=== PATIENT | female | born 1970 | race Caucasian/White ===

== ENCOUNTER → 2018-03-30 16:10 | Outpatient (CLI) | payer BC, SELFPAY ==
--- NOTE | 2018-03-30 16:13 | MR_ITS ---
MR head/brain wo con Ordering Physician: Lauri Paredes MD Patient Age: 47 years: Female HISTORY: ITS.REASON: NONINTRACTABLE EPISODIC HEADACHE HISTORY of breast cancer with recent double mastectomy in November and reconstruction 4 weeks ago. TECHNIQUE: MRI the brain without contrast. Multiplanar FLAIR, T1, T2 weighted images along with axial diffusion/ADC imaging performed on 1.5 T. Siemens, MRI. COMPARISON :None FINDINGS No mass lesion evident. No mass effect. Diffusion images reveal no recent or acute infarct or ischemia. The ventricles are normal size & basal cisterns appear normal. White gonzalez matter interface appears normal. The sensitive axial and coronal FLAIR lesions image set reveal no deep white matter lesions. Posterior fossa is unremarkable. . IACs appear symmetric CP angle clear. Mastoid air cells well-developed and unremarkable. . Normal anatomy with normal cranial cervical junction. Normal sella.. No extra-axial collections. The scalp and skull regions appear satisfactory. Normal flow void dural venous sinuses. Visualized paranasal sinuses well-developed and clear.. Engorgement nasal turbinates bilaterally noted with deviation nasal septum to the right. It orbits unremarkable on this survey study.. --- IMPRESSION: 1. Negative MRI the brain. No intracranial abnormalities evident. No mass lesion. No deep white matter lesions. Normal anatomy. 2. Also in regards to history headaches- the paranasal sinuses are clear.. Moderate engorgement nasal turbinates bilaterally with mild deviation nasal septum.
== END ==
PROVIDERS: PCP Internal Medicine Adolescent Medicine; Visit Provider Internal Medicine Adolescent Medicine
DX: R51 Headache (principal)
CPT/HCPCS: 70551

== ENCOUNTER → 2022-01-11 06:59 | Outpatient (CLI) | payer BC, SELFPAY ==
--- NOTE | 2022-01-11 | CA_ITS ---
APPROVED REPORT Exam: Exercise Treadmill Technologist: Savannah Dawkins, Ht: 5 ft 2 in Wt: 188 lbs BSA: 1.86 m2 HR: 61 bpm BP: 161/84 mmHg Stress Test Details Test: Chalino HR Resting HR: 59 bpm Max Heart Rate (APMHR): 171 bpm Max HR Achieved: 169 bpm Target HR (85% APMHR): 145 bpm % of APMHR: 99 Recovery HR: 91 bpm BP Resting BP: 170/83 mmHg Max BP: 193/87 mmHg Recovery BP: 171.0/82.0 mmHg ECG Resting ECG: SR, nonspecific ST-T changes. Clinical Exercise duration: 06:33 min Highest Stage Achieved: II Exercise capacity: 7.0 METs Stress ECG Conclusion Max HR: 169 Symptoms: SOA, w/exertion, no chest pain. Arrhythmias/Ectopy: frequent PVCs, ventricular couplet, ventricular bigeminy. Less than 1.[address] segment depression noted from the baseline EKG, the EKG portion of the exercise is nondiagnostic. Electronically signed by : Noe Cesar MD 01/11/2022 11:55:27
--- NOTE | 2022-01-11 07:24 | NM_ITS ---
APPROVED REPORT Exam: Nuclear Stress Test Indication: HYPERLIPIDEMIA, FM HX., C.P., SOB, PALPITATIONS Patient Location: Outpatient Stress Tech: Savannah Dupont AR Tech:Natalie Patino, ARRT RT (R)(N)(M) Ht: 5 ft 2 in Wt: 188 lbs Bra Size: 36D HR: 61 bpm BP: 161/84 mmHg BSA: 1.86 m2 TID: 1.20 BMI: 34.3 History: HYPERLIPIDEMIA, FM HX., C.P., SOB, PALPITATIONS Procedure: Patient exercised on Chalino protocol 6:30 minutes and sec, resting heart rate 161 bpm, resting blood pressure 161/84 mmHg, with exercise maximum heart rate achived was 166 bpm which is 99 % of the maximum predicted heart rate and blood pressure was 193/87 mmHg. Test was stopped due to SOA. Patient denied any complaint of chest pain. Patient has Adequate exercise capacity, achieved 7.0 METs of workload on treadmill, the blood pressure response to exercise was Adequate. Electrocardiogram Resting electrocardiogram shows sinus rhythm nonspecific ST-T changes, with exercise there is additional millimeter downsloping ST segment depression from the baseline EKG, the EKG portion of the exercise Myoview is nondiagnostic due to baseline abnormal EKG. Cardiac Stress and Resting SPECT Images: Cardiac Stress and Resting SPECT images were obtained using technetium 99m Myoview 31.5 mCi stress and 10.45 mCi at rest. Gated SPECT analysis of segmental wall motion and calculation of the ejection fraction also done. Cardiac stress and rest SPECT images show mild fixed defect in the anterior wall with normal contractility in the gated SPECT is likely secondary to soft tissue attenuation from breast, no reversible ischemia seen, computer derived ejection fraction is 63% with no regional wall motion abnormality, right ventricle is normal size and contractility. Conclusion: 1. The EKG portion of the exercise Myoview is nondiagnostic due to baseline abnormal EKG, patient has adequate exercise capacity achieved 7 METS of workload on treadmill, the blood pressure response to exercise was adequate. There was no exercise-induced chest discomfort. 2. No scintigraphic evidence of reversible ischemia seen, computer derived ejection fraction 63% with no regional wall motion abnormality, right ventricle is normal size and contractility. 3. Normal exercise Myoview study. Electronically signed by : Noe Cesar MD 01/11/2022 11:59:03
--- NOTE | 2022-01-11 08:14 | CA_ITS ---
APPROVED REPORT EXAM: Comprehensive 2D, Doppler, and color-flow Echocardiogram Seat Trimmer: Genevieve Morrissey RVT Ht: 5 ft 2 in Wt: 170lbs BSA: 1.78 BP: 116/72 mmHg Indications: SOA,MURMUR,CP,PRIOR MASECTOMY WITH IMPLANTS TDS-BREAST IMPLANTS 2D Dimensions LVOT 1.83 cm (M/F) 1.5-2.5 LA Volume 22.90 mL LA Volume Index 12.86 mL/m2 (M/F) 16-34 M-Mode Dimensions RVDd 2.61 cm (0.9-2.6) LA Diam 2.80 cm (1.9-4.0) LVDd 3.56 cm (3.5-5.7) Ao Diam 2.31 cm (2.0-3.7) LVDs 2.08 cm (3.5-5.7) IVSd 0.91 cm (0.6-1.1) PWd 0.57 cm (0.6-1.1) EF (Teich) 73.40% FS 41.60% EDV (Teich) 53.00 mL TAPSE 1.61 (<1.7) ESV (Teich) 14.10 mL LV Diastology E Decel Time 150.00 (160-240 msec) E/A Ratio 0.9 MED E' 9.90 (< 7 cm/sec) E'/MED E' Ratio 9.02 (>14) LAT E' 8.40 (<10 cm/sec) E/LAT E' Ratio 10.63 (>14) Aortic Valve AO Peak GR. 5.40 mmHg Mitral Valve MV E Max Artem. 89.00 (40-130 cm/s) MV A Velocity 103.00 (40-130 cm/s) E/A Ratio 0.87 MV Decel. Time 150.00 (160-240 ms) MV PHT 44.00 ms Pulmonary Valve PV Peak Velocity 69.00 (50-150 cm/s) Tricuspid Valve TR P. Velocity 234.00 cm/s RAP Estimate 10.00 mmHg RVSP 31.90 mmHg Left Ventricle Left atrium normal size, left ventricle is normal size preserved left ventricular systolic function, estimated ejection fraction 55% with no regional wall motion abnormality, diastolic parameters are within normal range. Right Ventricle Right atrium and right ventricle are normal size and contractility. Aortic Valve Aortic valve is grossly normal there is no aortic stenosis or aortic insufficiency. Mitral Valve Mitral valve is grossly normal, there is trace mitral regurgitation. Tricuspid Valve Tricuspid grossly normal, there is trace tricuspid regurgitation, tricuspid regurgitation jet velocity is inadequate for calculation of the right ventricular systolic pressure. Pulmonic Valve Pulmonic valve is poorly visualized. Great Vessels Aortic root is normal size. Inferior vena cava is mildly dilated without significant inspiratory collapse. Pericardium No significant pericardial effusion noted. Conclusion 1. Normal left ventricular size preserved left ventricular systolic function, estimated ejection fraction 55% with no regional wall motion abnormality, diastolic parameters are within normal range. 2. Trace mitral and tricuspid regurgitation. 3. No significant pericardial effusion. 4. Inferior vena cava is mildly dilated without significant inspiratory collapse. Electronically signed by : Noe Cesar MD 01/11/2022 13:49:32
--- NOTE | 2022-01-11 08:15 | US_ITS ---
FINAL REPORT CLINICAL HISTORY: previous smoker, HLD, bilateral claudication. FINDINGS: COMPLETE ANKLE/BRACHIAL INDICES BILATERAL Plate ankle brachial indices was obtained. The right MAHESH is 1.0. The left MAHESH is 1.1. IMPRESSION: Normal ABIs bilaterally. Reviewed, Interpreted and Dictated by Shivam Acosta III, MD Transcribed by Arcelia López Authenticated and [facility]
== END ==
PROVIDERS: PCP Internal Medicine Adolescent Medicine; Visit Provider Internal Medicine Adolescent Medicine
DX: R06.09 Other forms of dyspnea (principal); I20.8 Other forms of angina pectoris; R01.1 Cardiac murmur, unspecified; I70.213 Atherosclerosis of native arteries of extremities with intermittent claudication, bilateral legs
CPT/HCPCS: 78452; 93017; 93306; 93923; A9502

== ENCOUNTER → 2022-01-31 14:27 | Outpatient (CLI) | payer BC, SELFPAY ==
[2022-01-31 14:33] LABS: Microscopic, Urine URINE MICROSCOPIC (MICROSCOPIC)
[2022-01-31 15:31] LABS: Appearance,Urine CLEAR (Clear); Bilirubin,Urine Negative (Negative); Blood, Urine TRACE-I (Negative); Color,Urine YELLOW (Yellow); Glucose,Urine (UA) Negative (Negative); Ketones,Urine Negative (Negative); Leukocyte Esterase,Urine Negative (Negative); Nitrate,Urine Negative (Negative); Protein,Urine Negative (Negative); Specific Gravity, Urine >= 1.030 (1.005-1.030); Urobilinogen,Urine 0.2 EU/dl (0.2)
[2022-01-31 15:41] LABS: Basophils # 0.1 K/mm3 (0-0.2); Basophils % 1.1 % (0.1-2.0); Eosinophils # 0.3 K/mm3 (0.0-0.4); Eosinophils % 3.7 % (0.1-12.0); Hematocrit 39.4 % (37.0-47.0); Lymphocytes # 3.2 K/mm3 (0.7-4.5); Lymphocytes % 40.6 % (10-50); Mean Corpuscular HGB Conc 33.1 g/dL (31.8-35.4); Mean Corpuscular Hemoglobin 31.6 pg (27.0-31.2); Mean Corpuscular Volume 95.4 fl (81-99); Mean Platelet Volume 8.6 fl (7.4-10.4); Monocytes # 0.6 K/mm3 (0.1-1.0); Monocytes % 8.1 % (1.7-9.3); Neutrophils # 3.7 K/mm3 (1.8-7.8); Neutrophils % 46.4 % (37.0-80.0); Platelet Count 299 K/mm3 (142-424); Red Blood Count 4.13 M/mm3 (4.20-5.40); Red Cell Distribution Width 12.7 % (11.5-17.5); White Blood Count 7.9 K/mm3 (4.8-10.8)
[2022-01-31 15:56] LABS: Alanine Aminotransferase 16 U/L (12-78); Albumin Level 4.2 g/dl (3.5-5.0); Albumin/Globulin Ratio 1.4 (1.1-1.8); Alkaline Phosphatase 80 U/L (38-126); Amylase 53 U/L (30-110); Anion Gap 10.3 mEq/L (5-15); Aspartate Amino Transferase 24 U/L (14-36); Blood Urea Nitrogen 13 mg/dl (7-17); Calcium 9.1 mg/dl (8.4-10.2); Carbon Dioxide 26 mmol/L (22.0-30.0); Chloride 105 mmol/L (98-107); Estimated Glomerular Filt Rate 76 ml/min (>60); GFR (African American) 92 ML/MIN (>60); Globulin 2.9 g/dL (1.3-3.2); Glucose 74 mg/dl (74-100); Lipase 144 U/L (23-300); Potassium 4.3 mmoL/L (3.5-5.1); Sodium 137 mmol/L (136-145); Total Protein,Serum 7.1 g/dl (6.3-8.2)
[2022-01-31 15:58] LABS: Bilirubin,Total < 0.1 mg/dl (0.2-1.3)
[2022-01-31 17:24] LABS: WBC,Urine Occasional #/hpf (0-3)
[2022-01-31 17:25] LABS: Bacteria,Urine 2+ /lpf
[2022-02-01 09:02] LABS: MANUAL DIFFERENTIAL MANUAL DIFFERENTIAL (MANUAL DIFF)
[2022-02-01 17:39] LABS: Eosinophils % 3 % (0-3); Lymphocytes % 40 % (10-50); Monocytes % 4 % (2-9); Neutrophils % 53 % (42-76); Platelet Estimate Normal; RBC Morphology Normal; Total Cells Counted 100
== END ==
PROVIDERS: PCP Internal Medicine Adolescent Medicine; Visit Provider Nurse Practitioner Family
DX: R10.10 Upper abdominal pain, unspecified (principal)
CPT/HCPCS: 36415; 80053; 81001; 82150; 83690; 85007; 85014; 85018; 85025; 85048; 85049; 87086

== ENCOUNTER → 2022-08-14 08:46 | Outpatient (CLI) | payer BC, SELFPAY ==
[2022-08-14 09:44] LABS: Alanine Aminotransferase 29 U/L (12-78); Albumin Level 4.4 g/dl (3.5-5.0); Albumin/Globulin Ratio 1.8 (1.1-1.8); Alkaline Phosphatase 69 U/L (38-126); Anion Gap 13.2 mEq/L (5-15); Aspartate Amino Transferase 30 U/L (14-36); Bilirubin,Total 0.4 mg/dl (0.2-1.3); Blood Urea Nitrogen 13 mg/dl (7-17); Calcium 8.8 mg/dl (8.4-10.2); Carbon Dioxide 25 mmol/L (22.0-30.0); Chloride 103 mmol/L (98-107); Chol/HDL Ratio 2.8 (1-3.5); Cholesterol 113 mg/dl (140-200); Estimated Glomerular Filt Rate 89 ml/min (>60); GFR (African American) 107 ML/MIN (>60); Globulin 2.4 g/dL (1.3-3.2); Glucose 94 mg/dl (74-100); HDL Cholesterol 41 mg/dl (40-60); Potassium 5.2 mmoL/L (3.5-5.1); Sodium 136 mmol/L (136-145); Total Protein,Serum 6.8 g/dl (6.3-8.2); Triglycerides 139 mg/dl (30-150); VLDL Cholesterol 28 mg/dL (0-40)
[2022-08-14 09:55] LABS: Direct LDL Cholesterol 56.57 mg/dL (100-129)
== END ==
PROVIDERS: PCP Internal Medicine Adolescent Medicine; Visit Provider Internal Medicine Adolescent Medicine
DX: E78.5 Hyperlipidemia, unspecified (principal)
CPT/HCPCS: 36415; 80053; 80061

== ENCOUNTER → 2023-03-12 14:45 | Outpatient (CLI) | payer BC, SELFPAY ==
[2023-03-12 16:31] LABS: Anion Gap 16.1 mEq/L (5-15); Blood Urea Nitrogen 12 mg/dl (7-17); Calcium 9.1 mg/dl (8.4-10.2); Carbon Dioxide 20 mmol/L (22.0-30.0); Chloride 105 mmol/L (98-107); Estimated Glomerular Filt Rate 106 ml/min (>60); GFR (African American) 128 ML/MIN (>60); Glucose 128 mg/dl (74-100); Magnesium 1.7 mg/dl (1.6-2.3); Potassium 4.1 mmoL/L (3.5-5.1); Sodium 137 mmol/L (136-145)
[2023-03-12 16:40] LABS: Basophils # 0.1 K/mm3 (0-0.2); Basophils % 0.5 % (0.1-2.0); Eosinophils # 0.3 K/mm3 (0.0-0.4); Eosinophils % 2.8 % (0.1-12.0); Hematocrit 38.6 % (37.0-47.0); Hemoglobin 13.5 g/dL (12.2-16.2); Lymphocytes % 31.2 % (10-50); Mean Corpuscular Hemoglobin 32.6 pg (27.0-31.2); Mean Corpuscular Volume 93.3 fl (81-99); Mean Platelet Volume 8.9 fl (7.4-10.4); Monocytes # 0.4 K/mm3 (0.1-1.0); Monocytes % 4.1 % (1.7-9.3); Neutrophils % 61.4 % (37.0-80.0); Platelet Count 246 K/mm3 (142-424); Red Blood Count 4.13 M/mm3 (4.20-5.40); Red Cell Distribution Width 12.7 % (11.5-17.5); White Blood Count 9.7 K/mm3 (4.8-10.8)
[2023-03-12 16:51] LABS: Free T4 (Free Thyroxine) 0.85 ng/dl (0.78-2.19)
[2023-03-12 17:03] LABS: Thyroid Stimulating Hormone 3.52 uIU/mL (0.465-4.68)
== END ==
PROVIDERS: PCP Internal Medicine Adolescent Medicine; Visit Provider Nurse Practitioner
DX: I49.3 Ventricular premature depolarization (principal); R00.2 Palpitations; R06.02 Shortness of breath; R42 Dizziness and giddiness
CPT/HCPCS: 36415; 80048; 83735; 84439; 84443; 85025; 93270

== ENCOUNTER 2023-03-27 07:09 | Outpatient (CLI) | payer BC, SELFPAY ==
[2023-03-27] VITALS (7 sets, daily range): BP systolic 112–154; BP diastolic 67–88; PULSE 48–60; RESP 17–19; TEMP 36.7; O2SAT 96–98; BMI 34.7
--- NOTE | 2023-03-27 07:09 | CT_ITS ---
APPROVED REPORT Strike Warfare/Missile Systems Officer: CLINICAL INDICATION Chest Pain TECHNIQUE Image Acquisition: A 128 slice MDCT scanner ([employer] View) was used for data acquisition. A noncontrast coronary calcium scan was performed. A CT attenuation threshold of 130 Hounsfield units (HU) was used for the detection of calcium in contiguous voxels of 1 sq mm in area to be counted as individual lesions. Bolus tracking in the ascending aorta with a threshold of 180 HU was performed. Immediately afterwards, ECG synchronized cardiac CT was then performed from the cardiac base to apex using retrospective gating with ECG tube current modulation. A total of 85 mL of Isovue 370 mg/mL contrast medium was administered at 5 mL/sec followed by a saline flush using a biphasic injection protocol. A tube voltage of 120 KVp was used. The patient received the following medications prior to the cardiac CT. 25 mg of oral metoprolol 0.8 mg of sublingual nitroglycerin The average heart rate at the time of acquisition was 62 bpm and regular. Image Reconstruction Transaxial images were reconstructed at 0.67 mm slide thickness. Data was reviewed interactively on an advanced workstation capable of 2 and 3-dimensional displays in all conventional reconstruction formats, including multiplanar reformations, maximum intensity projections, curved multiplanar reformations, and volume rendered reconstructions. When applicable, selected routine images describing the relevant coronary anatomy and pathology were saved and sent to PACS. Complications None Technical Quality Overall image quality was poor Coronary artery opacification was inadequate. The patient had moved during the acquisition of the CT images, resulting in significant step artifact and inadequate visualization of the coronary vessels due to extravasation of IV contrast and loss of IV access. Total DLP (Dose-Length Product) is 1256.9 mGy-cm. The reported value represents the total of one or more individual components during the CT acquisition of this date and at this time, and as such, the same value may appear in more than one CT report depending on the interpreting/reporting physicians. COMPARISON None FINDINGS CT Coronary Calcium Scoring LMA (Left Main Artery) = 0 LAD (Left Anterior Descending) = 0 LCX (Left Coronary Circumflex) = 0 RCA (Right Coronary Artery) = 0 Total Calcium Score = 0 using the AJ-130 method. The interpretation of the calcium heart score is based on the following continuum*: 0 = no calcified plaque detected (risk of coronary artery disease is very low ??? less than 5%) 1-10 = calcium detected in extremely minimal levels (risk of coronary diseases is still low ??? less than 10%) 11-100 = mild levels of plaque detected with certainty (mild or minimal narrowing of heart arteries is likely) 101-400 = definite,at least moderate levels of plaque detected (relatively high risk of a heart attack within 3-5 years) >401-999 = extensive levels of plaque detected (high risk of heart attack, high levels of vascular disease are present, high likelihood of at least one significant coronary narrowing) *The calcium heart score quantifies the burden of coronary calcification/plaque in the coronary arteries. The calcium heart score is not able to evaluate the presence or burden of non-calcified (i.e. soft) plaque. There is no identifiable calcification in the aortic valve, mitral annulus or mitral valve, pericardium, or myocardium. Coronary CT Angiography Coronaries have normal origin and proximal course. The coronary arterial system is left dominant. Note: Stenosis is reported as maximum percentage diameter stenosis. Quantitative Stenosis Grading: Left Main (LM): The left main originates normally fro
[2023-03-27 07:38] LABS: Urine Pregnancy, HCG Qual. Negative (Negative)
--- NOTE | 2023-03-27 08:05 | PC.NURSE ---
To CT room, BP 154/88. Nitro 0.8 given @ 0807.
--- NOTE | 2023-03-27 08:12 | PC.NURSE ---
post nitro BP 112/67, no C/O
--- NOTE | 2023-03-27 08:25 | PC.NURSE ---
Pt's IV blew as contrast went in, causing some pain and pt moved. CTA unable to be completed. IV was difficult start requiring U/S and multiple sticks. Pt opted to come back another day.
== END 2023-03-27 09:06 | disposition home or self-care (01) ==
PROVIDERS: PCP Internal Medicine Adolescent Medicine; Visit Provider Nurse Practitioner
DX: R06.02 Shortness of breath (principal); R07.9 Chest pain, unspecified; R00.2 Palpitations; I49.3 Ventricular premature depolarization
CPT/HCPCS: 75571; 75574; 81025; Q9967

== ENCOUNTER → 2023-03-28 13:05 | Outpatient (CLI) | payer BC, SELFPAY ==
--- NOTE | 2023-03-28 13:10 | CA_ITS ---
APPROVED REPORT EXAM: Comprehensive 2D, Doppler, and color-flow Echocardiogram Road Train Driver: JOSAFAT Pena, RVS Ht: 5 ft 2 in Wt: 196lbs BSA: 1.90 BP: 138/90 mmHg Rhythm: abn ekg Indications: Palpitations, SOB, Murmur, Hx- breast Cancer w/ breast implants, Ex-smoker Echo Enhancing Agent Comments: Limited acoustic windows due to patient body habitus factors 2D Dimensions Aortic Root 2.54 cm LA Volume 57.60 mL Left Atrium 3.62 cm LA Volume Index 29.70 mL/m2 (M/F) 16-34 LVOT 1.81 cm (M/F) 1.5-2.5 M-Mode Dimensions RVDd 2.70 cm (0.9-2.6) LA Diam 3.54 cm (1.9-4.0) LVDd 4.13 cm (3.5-5.7) Ao Diam 2.45 cm (2.0-3.7) LVDs 2.85 cm (3.5-5.7) IVSd 0.87 cm (0.6-1.1) PWd 0.87 cm (0.6-1.1) EF (Teich) 59.10% EPSs 0.57 cm FS 31.00% EDV (Teich) 75.50 mL TAPSE 2.67 (<1.7) ESV (Teich) 30.90 mL LV Diastology E Decel Time 147.00 (160-240 msec) E/A Ratio 1.30 MED E' 6.80 (< 7 cm/sec) MED A' 9.10 cm/s E'/MED E' Ratio 16.63 (>14) LAT E' 6.10 (<10 cm/sec) LAT A' 7.80 cm/s E/LAT E' Ratio 18.54 (>14) Aortic Valve LVOT Max 108.00 (70-110 cm/s) LVOT VTI 25.85 cm AoV Peak Artem. 147.00 (50-130 cm/s) AO Peak GR. 8.70 mmHg AO Mean GR. 4.40 (<5 mmHg) AO VTI 33.84 (18-25 cm) AVE (VTI) 1.97 (2.5-4.5 cm2) Mitral Valve MV A Velocity 87.00 (40-130 cm/s) E/A Ratio 1.30 MV Decel. Time 147.00 (160-240 ms) Tricuspid Valve TR P. Velocity 275.00 cm/s RAP Estimate 10.00 mmHg RVSP 40.20 mmHg Left Ventricle The left ventricle is normal size. The left ventricular systolic function is normal. The left ventricular ejection fraction is within the normal range. There is normal left ventricular wall thickness. There is normal LV segmental wall motion. The left ventricular diastolic function is normal. LVEF is 60%. Right Ventricle Right ventricle is mildly dilated. The right ventricular systolic function is normal. Atria The left atrium size is normal. The right atrium size is normal. There is no Doppler evidence of interatrial shunt. Aortic Valve The aortic valve opens well. There is no aortic valvular stenosis. No aortic regurgitation is present. Mitral Valve The mitral valve is normal in structure. No evidence of mitral valve stenosis. Trace mitral regurgitation. Tricuspid Valve The tricuspid valve leaflets are thin and pliable. Mild tricuspid regurgitation. RVSP is 30-35 mmHg. Pulmonic Valve The pulmonary valve is normal in structure. Trace pulmonic regurgitation. Great Vessels The aortic root is normal in size. The ascending aorta is normal in size. IVC is normal in size and collapses >50% with inspiration. Pericardium There is no pericardial effusion. Other Information Study Quality: Fair Conclusion Normal biventricular systolic function. Mild RV dilation. Mild TR. Elevated RVSP 30-35 mmHg. Electronically signed by : Rochelle Montano MD 03/31/2023 21:15:52
== END ==
PROVIDERS: PCP Internal Medicine Adolescent Medicine; Visit Provider Nurse Practitioner
DX: R06.02 Shortness of breath (principal); R42 Dizziness and giddiness; R00.2 Palpitations; I35.0 Nonrheumatic aortic (valve) stenosis; I49.3 Ventricular premature depolarization
CPT/HCPCS: 93306

== ENCOUNTER 2023-10-17 16:58 | Outpatient (CLI) | payer BC, SELFPAY ==
--- NOTE | 2023-10-17 17:08 | XR_ITS ---
PROCEDURE INFORMATION: Exam: XR Right Foot Exam date and time: 10/17/2023 5:09 PM Age: 53 years old Clinical indication: Pain; Foot; Right TECHNIQUE: Imaging protocol: Radiologic exam of the right foot. Views: 3 or more views. COMPARISON: US ARTERIAL LOWER EXT REST 01/11/2022 10:17 AM FINDINGS: Bones/joints: There is no evidence of acute fracture.There is no evidence of malalignment or dislocation. Soft tissues: Normal. IMPRESSION: There is no evidence of acute fracture.There is no evidence of malalignment or dislocation.
== END 2023-10-17 23:59 | disposition home or self-care (01) ==
LOC: RAD 16:59
PROVIDERS: PCP Internal Medicine Adolescent Medicine; Visit Provider Internal Medicine Adolescent Medicine
DX: M79.674 Pain in right toe(s) (principal); M79.671 Pain in right foot
CPT/HCPCS: 73630

== ENCOUNTER 2023-12-08 15:00 | Outpatient (RCR) | payer BC, SELFPAY | END 2023-12-08 16:00 | disposition home or self-care (01) | LOC: OT 15:00 | PROVIDERS: Visit Provider Internal Medicine Adolescent Medicine | DX: M25.512 Pain in left shoulder (principal); M75.42 Impingement syndrome of left shoulder; M25.812 Other specified joint disorders, left shoulder | CPT/HCPCS: 97010; 97014; 97110; 97140; 97165; 97530; G0283 ==

== ENCOUNTER 2025-03-15 10:16 | Outpatient (CLI) | payer BC, SELFPAY ==
[2025-03-15 10:39] LABS: Hematocrit 40.2 % (37.0-47.0); Hemoglobin 13.8 g/dL (12.2-16.2); Immature Granulocytes % 0.2 %; Mean Corpuscular HGB Conc 34.3 g/dL (31.8-35.4); Mean Corpuscular Hemoglobin 31.0 pg (27.0-31.2); Mean Corpuscular Volume 90.3 fl (81-99); Nucleated Red Blood Cells % 0 %; Platelet Count 297 K/mm3 (142-424); Red Blood Count 4.45 M/mm3 (4.20-5.40); Red Cell Distribution Width-SD 38.1 fL; White Blood Count 6.2 K/mm3 (4.8-10.8)
[2025-03-15 10:44] LABS: Albumin Level 4.5 g/dl (3.5-5.0); Chloride 102 mmol/L (98-107); Potassium 4.8 mmoL/L (3.5-5.1); Sodium 137 mmol/L (136-145)
[2025-03-15 10:47] LABS: Alanine Aminotransferase 24 U/L (12-78); Albumin/Globulin Ratio 1.3 (1.1-1.8); Anion Gap 13.8 mEq/L (5-15); Aspartate Amino Transferase 33 U/L (14-36); Blood Urea Nitrogen 14 mg/dl (7-17); Carbon Dioxide 26 mmol/L (22.0-30.0); Creatinine,Serum 0.70 mg/dl (0.52-1.04); Estimated Glomerular Filt Rate 88 ml/min (>60); GFR (African American) 106 ML/MIN (>60); Globulin 3.4 g/dL (1.3-3.2); Total Protein,Serum 7.9 g/dl (6.3-8.2)
[2025-03-15 10:48] LABS: Alkaline Phosphatase 73 U/L (38-126); Bilirubin,Total 0.8 mg/dl (0.2-1.3); Calcium 8.7 mg/dl (8.4-10.2); Glucose 97 mg/dl (74-100)
[2025-03-15 11:05] LABS: Troponin I < 0.01 ng/ml (0.00-0.034)
[2025-03-15 11:21] LABS: Thyroid Stimulating Hormone 3.59 uIU/mL (0.465-4.68)
[2025-03-15 14:56] LABS: Troponin I < 0.01 ng/ml (0.00-0.034)
== END 2025-03-15 23:59 | disposition home or self-care (01) ==
PROVIDERS: PCP Internal Medicine Adolescent Medicine; Visit Provider Nurse Practitioner Family
DX: R06.02 Shortness of breath (principal); R07.89 Other chest pain
CPT/HCPCS: 36415; 80053; 84443; 84484; 85025